=== PATIENT | female | born 1990 | race Two or more races ===

== ENCOUNTER 2018-12-11 23:13 | Emergency (ER) | payer OTHER ==
[~2018-12-11] VITALS: Ht 157.5 cm; Wt 78.5 kg
[2018-12-11 23:18] VITALS: BP 125/84
--- NOTE | 2018-12-11 23:58 | NUR ---
PT TO ER FOR BOIL DRAINAGE. PT UNWILLING TO SHOW, ONLY KNOW ON L BUTTOCK. PT BS 380, STATES HASN'T CHECKED IN A WEEK SHE 'COULDN'T WALK'. S/P BOIL. T PACING BACK AND FORTH IN ROOM
[2018-12-12] MEDS ORDERED: LIDOCAINE 2%, 20ML SQ ONE
[2018-12-12] MEDS ORDERED: LIDOCAINE-MPF 1%, 5ML ONE (00:02)
--- NOTE | 2018-12-12 00:18 | NUR ---
PA AT BEDSIDE FOR I&D
== END 2018-12-12 01:00 | disposition home or self-care (01) ==
LOC: ED 23:59
DX: L02.31 Cutaneous abscess of buttock (principal); E11.65 Type 2 diabetes mellitus with hyperglycemia
CPT/HCPCS: 46050; 82962; 99284